=== PATIENT | female | born 1990 | race Caucasian/White ===

== ENCOUNTER → 2020-07-25 11:34 | Outpatient (BNVA) | payer OTHER, SELFPAY | PROVIDERS: PCP Family Medicine; Visit Provider Advanced Practice Midwife | DX: Z76.89 Persons encountering health services in other specified circumstances (principal) ==

== ENCOUNTER → 2020-09-21 08:38 | Outpatient (BNVA) | payer OTHER, SELFPAY | PROVIDERS: Visit Provider Advanced Practice Midwife | DX: Z30.433 Encounter for removal and reinsertion of intrauterine contraceptive device (principal) | CPT/HCPCS: 11981; 11982; 11983; 81025 ==

== ENCOUNTER → 2020-11-12 14:44 | Outpatient (BNVA) | payer OTHER, SELFPAY | PROVIDERS: Visit Provider Advanced Practice Midwife ==

== ENCOUNTER 2020-12-28 12:19 | Emergency (ER) | payer OTHER, SELFPAY ==
--- NOTE | ~2020-12-28 | XR_ITS ---
EXAMINATION: XR CHEST CLINICAL INFORMATION: Chest symptoms. Low suspicion pulmonary edema COMPARISON: Chest radiographs 05/06/2018 TECHNIQUE: Portable upright AP view of the chest was obtained. FINDINGS: The heart is within normal size. The vascularity is normal. There is no airspace consolidation, vascular congestion, Yamini B lines, pleural reaction, or effusion. The costophrenic sulci are clear. The hilar and mediastinal contours and bony structures are unremarkable. XR/XR chest 1V IMPRESSION: Unremarkable examination.
[2020-12-28 12:26] VITALS: BP 120/87; BP 134/72; PULSE 120; PULSE 121; RESP 30; TEMP 36.7; O2SAT 95; O2SAT 98; BMI 32.4
--- NOTE | 2020-12-28 13:00 | ECG_ITS ---
Test Reason : HEART PALP Blood Pressure : / mmHG Vent. Rate : 109 BPM Atrial Rate : 163 BPM P-R Int : 000 ms QRS Dur : 076 ms QT Int : 396 ms P-R-T Axes : 000 048 -06 degrees QTc Int : 533 ms Atrial fibrillation with rapid ventricular response Moderate voltage criteria for LVH, may be normal variant Nonspecific ST and T wave abnormality Abnormal ECG When compared with ECG of 21-FEB-2015 11:08, Significant changes have occurred Referred By: Charlotte Mccurdy Electronically Signed By:LUIGI CONLEY
--- NOTE | 2020-12-28 13:23 | ED.ARRPALP ---
HPI - Arrhythmia/Palpitations General Chief Complaint: Arrhythmia/Palpitations Stated Complaint: afib Time Seen by Provider: 12/28/20 12:59 Source: patient and EMS Mode of arrival: EMS Limitations: no limitations History of Present Illness HPI narrative: Patient comes emergency room complaining of palpitations. Patient states that this morning around 11:00, she started having palpitations. 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 Patient states that she is known to have hyperthyroidism, she is supposed to be taking methimazole, states she is not compliant with her medication. Patient denies chest pain, just complaining of palpitations. Denies shortness of breath. EN route to the hospital, patient received 10 mg of IV Cardizem, decreased her heart rate to 120-130. At this time, patient feels better, still feeling palpitations. MD complaint: heart racing and palpitations Related Data Home Medications Medication Instructions Recorded Confirmed etonogestrel 68 mg subdermal SUBDERMAL 07/25/20 implant methimazole 10 mg tablet 10 mg PO DAILY 07/25/20 Previous Rx's Medication Instructions Recorded methimazole 20 mg PO TID 20 Days #120 tab 12/28/20 propranolol 20 mg PO BID 20 Days #40 tab 12/28/20 Allergies Allergy/AdvReac Type Severity Reaction Status Date / Time No Known Allergies Allergy Verified 11/12/20 14:55 [No Known Allergies*] Review of Systems Review of Systems: Constitutional : No Weight loss, No Fever, No Chills, No Night Sweats, No Fatigue, No Malaise ENT/Mouth : No Hearing loss, No Ear Pain, No Nasal Congestion, No Sinus Pain, No Hoarseness, No sore throat, No Rhinorrhea, No Swallowing Difficulty Eyes: No Eye Pain, No Swelling, No Redness, No Foreign Body, No Discharge, No Vision Changes Cardiovascular : No Chest Pain, No SOB, No Dyspnea on Exertion, No Orthopnea, No Edema, complaining of palpitations Respiratory : No Cough, No Sputum, No Wheezing, No Smoke Exposure, No Dyspnea Gastrointestinal : No Nausea, No Vomiting, No Diarrhea, No Constipation, No abdominal Pain, No Hematochezia, No Melena Genitourinary : no irregular bleeding, No Dysuria, No Urinary Frequency, No Hematuria, No Urinary Incontinence, No Urgency, No Flank Pain, No Urinary Flow Changes, No Hesitancy Musculoskeletal : No joint pain, No Myalgias, No Joint Swelling Skin : No Skin Lesions, No rash Neuro : No Weakness, No Numbness, No Paresthesias, No Loss of Consciousness, No Dizziness, No Headache Psych : No Anxiety/Panic, No Depression, No SI/HI/AH/VH, No Social Issues, Heme/Lymph: No Bruising, No Bleeding,No Lymphadenopathy Endocrine : No Polyuria, No Polydipsia, No Temperature Intolerance FOR[facility]LY [facility] Past Medical History Medical History Graves disease Surgical History History of appendectomy Family History Family History Father FH: heart attack Social History Social History Alcohol intake: never Patient Tobacco Use Status: Never used Tobacco Use of substances other than those prescribed or required for medical reasons: No Advance Directives: No Advance Directives Information Provided: No Patient : No Physical Exam Vital Signs: Vital Signs: Last Vital Signs Temp 98.1 F 12/28/20 12:26 Pulse 95 12/28/20 17:29 Resp 20 12/28/20 17:29 BP 95/74 12/28/20 17:29 Pulse Ox 98 12/28/20 17:29 Body Mass Index 32.4 Appearance: Alert. Oriented X3. No acute distress. Eyes: Pupils equal, round and reactive to light. ENT: Pharynx normal. Neck: Enlarged thyroid, Neck supple. No lymph nodes noted. No crepitus CVS: Irregular heart rate and rhythm. Pulses normal. Normal S1 and S2 Respiratory: No respiratory distress. Breath sounds normal. No Wheezing. No rales Abdomen: Soft and nontender. No rigidity. No distention. good BS x4 Skin: Skin warm and dry. Normal skin color. Normal skin turgor. Extremities: No lower extremity edema. No lower extremity edema. No Lacerations. No Rash Neuro: Oriented X 3. No motor deficit. No sensory deficit. Moving all extermities. No slurred speech. Course Course Course Narrative: Patient received a total of 10 mg IV Cardizem IV and 60 mg p.o. propanolol. I discussed with the patient that she needs to be compliant with her medication. Patient states that she is supposed to be on 60 mg of methimazole per day. Patient does not take propranolol at home. To her knowledge, this is the 1st time that she is in a flutter. Patient's BNP is slightly bumped, but patient does not have any radiological findings of pulmonary edema or any symptoms. I discussed the patient with Dr. Oliver, patient will be sent home with propanolol 25 mg daily, no aspirin or anticoagulation needed. I will also send to the patient's pharmacy a prescription of methimazole, patient states that she does not know if she has any pills at home. At this time, heart rate is 95, blood pressure 95/74, patient is asymptomatic. MDM - Arrhythmia/Palpitations Lab Data Result diagrams: 12/28/20 13:30 12/28/20 13:30 Labs: Lab Results 12/28/20 12/28/20 12/28/20 Range/Units 13:30 13:30 13:30 WBC 5.8 (4.8-10.8) X10*3/uL RBC 5.12 (4.20-5.50) X10*6/uL Hgb 11.7 L (12.0-16.0) g/dl Hct 34.3 L (37-47) % MCV 67.0 L (80-98) fL MCH 22.9 L (27.0-33.0) pg MCHC 34.1 (31.0-35.0) g/dl RDW 14.7 (11.0-16.0) % Plt Count 240 (160-400) X10*3/uL MPV 11.1 (9.4-12.3) fL Immature Gran % (Auto) 0.3 (0.0-0.4) % Neut % (Auto) 52.5 (45-73) % Lymph % (Auto) 38.2 (20-40) % Humphreys % (Auto) 8.3 (2-11) % Eos % (Auto) 0.5 (0-4) % Baso % (Auto) 0.2 (0-2) % Lymph # (Auto) 2.2 (1.2-4.9) X10*3/uL Humphreys # (Auto) 0.5 (0.1-1.2) X10*3/uL Eos # (Auto) 0.0 (0.0-0.4) X10*3/uL Baso # (Auto) 0.0 (0.0-0.2) X10*3/uL Abs Immat Gran (auto) 0.02 (0.00-0.03) X10*3/uL Absolute Neuts (auto) 3.1 (2.0-8.3) X10*3/uL Absolute Nucleated RBC 0.000 (0.0-0.012) X10*3/uL Nucleated RBC % (auto) 0.0 (0.0-0.2) /100WBC PT 13.0 (10.8-13.0) SEC INR 1.1 (0.9-1.1) Sodium 139 (135-145) mmol/L Potassium 4.2 (3.3-5.1) mmol/L Chloride 109 H (96-108) mmol/L Carbon Dioxide 23 (22-29) mmol/L Anion Gap 11 L (12-20) BUN 12 (9-16) mg/dL Creatinine 0.51 (0.5-1.4) mg/dL Estim Creat Clear Calc 177.1 Estimated GFR > 60 Random Glucose 91 (60-115) mg/dL Calcium 9.3 (8.4-10.2) mg/dL Total Bilirubin 0.6 (0.0-1.0) mg/dL Direct Bilirubin 0.3 (0.0-0.5) mg/dL AST 20 (5-31) U/L ALT < 6 (0-31) U/L Alkaline Phosphatase 151 H (39-117) U/L Troponin I High Sens (<3.5-17.0) ng/L B-Natriuretic Peptide (<100) pg/mL Total Protein 6.5 (6.5-8.0) g/dL Albumin 3.5 (3.5-5.0) g/dL TSH (0.32-4.0) uIU/mL Free T4 (0.71-1.85) ng/dL 12/28/20 12/28/20 Range/Units 13:30 13:30 WBC (4.8-10.8) X10*3/uL RBC (4.20-5.50) X10*6/uL Hgb (12.0-16.0) g/dl Hct (37-47) % MCV (80-98) fL MCH (27.0-33.0) pg MCHC (31.0-35.0) g/dl RDW (11.0-16.0) % Plt Count (160-400) X10*3/uL MPV (9.4-12.3) fL Immature Gran % (Auto) (0.0-0.4) % Neut % (Auto) (45-73) % Lymph % (Auto) (20-40) % Humphreys % (Auto) (2-11) % Eos % (Auto) (0-4) % Baso % (Auto) (0-2) % Lymph # (Auto) (1.2-4.9) X10*3/uL Humphreys # (Auto) (0.1-1.2) X10*3/uL Eos # (Auto) (0.0-0.4) X10*3/uL Baso # (Auto) (0.0-0.2) X10*3/uL Abs Immat Gran (auto) (0.00-0.03) X10*3/uL Absolute Neuts (auto) (2.0-8.3) X10*3/uL Absolute Nucleated RBC (0.0-0.012) X10*3/uL Nucleated RBC % (auto) (0.0-0.2) /100WBC PT (10.8-13.0) SEC INR (0.9-1.1) Sodium (135-145) mmol/L Potassium (3.3-5.1) mmol/L Chloride (96-108) mmol/L Carbon Dioxide (22-29) mmol/L Anion Gap (12-20) BUN (9-16) mg/dL Creatinine (0.5-1.4) mg/dL Estim Creat Clear Calc Estimated GFR Random Glucose (60-115) mg/dL Calcium (8.4-10.2) mg/dL Total Bilirubin (0.0-1.0) mg/dL Direct Bilirubin (0.0-0.5) mg/dL AST (5-31) U/L ALT (0-31) U/L Alkaline Phosphatase (39-117) U/L Troponin I High Sens 4.0 (<3.5-17.0) ng/L B-Natriuretic Peptide 182 H (<100) pg/mL Total Protein (6.5-8.0) g/dL Albumin (3.5-5.0) g/dL TSH 0.01 L (0.32-4.0) uIU/mL Free T4 3.75 H (0.71-1.85) ng/dL Imaging Data Chest x-ray: Radiologist's impression: [facility] [place], [place] [id number] ReportSigned Patient: Mya McgillMR#: [id number]: 1990Acct:[id number]/Sex: 30 FADM Date: 12/28/20Loc: HO.EDAttending Dr: Ordering Physician: LANA MCCURDY MD Date of Service: 12/28/20 Procedure(s): XR chest 1V Accession Number(s): [id number] cc: LANA MCCURDY MD~ EXAMINATION: XR CHEST CLINICAL INFORMATION: Chest symptoms. Low suspicion pulmonary edema COMPARISON: Chest radiographs 05/06/2018 TECHNIQUE: Portable upright AP view of the chest was obtained. FINDINGS: The heart is within normal size. The vascularity is normal. There is no airspace consolidation, vascular congestion, Yamini B lines, pleural reaction, or effusion. The costophrenic sulci are clear. The hilar and mediastinal contours and bony structures are unremarkable. XR/XR chest 1V IMPRESSION: Unremarkable examination. ECG Data Attestation: I personally reviewed and interpreted this ECG as follows: (Atrial flutter, heart rate 109, specific ST and T-wave abnormalities, QTC 533. EKG 2.: Sinus rhythm, heart rate 92, no ST segment depression or elevation, no T-wave inversion, QTC 487) Discharge Plan Discharge Clinical Impression: Hyperthyroidism Atrial flutter Qualifiers: Atrial flutter type: unspecified Qualified Code(s): I48.92 - Unspecified atrial flutter Patient Disposition: Home, Self-Care Instructions: Atrial Flutter (ED), Hyperthyroidism (ED) Additional Instructions: Please call your throat cutter on Thursday. Please follow-up with your primary care physician tomorrow. If you have any worsening or new symptoms, please return to the emergency room or call 911 Prescriptions: New methimazole 10 mg tablet 20 mg PO TID 20 Days Qty: 120 RF: 0 propranolol 20 mg tablet 20 mg PO BID 20 Days Qty: 40 RF: 0 No Action Nexplanon 68 mg implant subdermal RF: 0 methimazole 10 mg tablet 10 mg PO DAILY RF: 0
[2020-12-28 13:38] LABS: MANUAL DIFF FLAG NO
[2020-12-28 13:39] LABS: Basophils Percent Auto 0.2 % (0-2); Eosinophils Percent Auto 0.5 % (0-4); Hematocrit 34.3 % (37-47); Hemoglobin 11.7 g/dl (12.0-16.0); Imm Gran Abs Auto 0.02 X10*3/uL (0.00-0.03); Imm Gran Pct Auto 0.3 % (0.0-0.4); Lymphocytes Absolute Auto 2.2 X10*3/uL (1.2-4.9); Lymphocytes Percent Auto 38.2 % (20-40); Mean Corpuscular HGB Conc 34.1 g/dl (31.0-35.0); Mean Corpuscular Hemoglobin 22.9 pg (27.0-33.0); Mean Platelet Volume 11.1 fL (9.4-12.3); Monocytes Absolute Auto 0.5 X10*3/uL (0.1-1.2); Monocytes Percent Auto 8.3 % (2-11); Neutrophils Absolute Auto 3.1 X10*3/uL (2.0-8.3); Neutrophils Percent Auto 52.5 % (45-73); Platelet Count 240 X10*3/uL (160-400); Red Blood Count 5.12 X10*6/uL (4.20-5.50); Red Cell Distribution Width 14.7 % (11.0-16.0); White Blood Count 5.8 X10*3/uL (4.8-10.8)
[2020-12-28] MEDS: 0.9 % Sodium Chloride 1,000 ML 999 ML IVCONT ×2 (13:52→15:08)
[2020-12-28 13:54] LABS: INTERNATIONAL NORM RATIO 1.1 (0.9-1.1)
[2020-12-28 14:05] VITALS: BP 114/67; PULSE 137
[2020-12-28] MEDS: Propranolol HCL 20 MG TABLET 60 MG PO (14:05)
[2020-12-28 14:14] LABS: B Type Natriuretic Peptide 182 pg/mL (<100)
[2020-12-28 14:17] LABS: Alanine Aminotransferase < 6 U/L (0-31); Albumin Level 3.5 g/dL (3.5-5.0); Alkaline Phosphatase 151 U/L (39-117); Anion Gap 11 (12-20); Aspartate Amino Transferase 20 U/L (5-31); Bilirubin Direct 0.3 mg/dL (0.0-0.5); Bilirubin Total 0.6 mg/dL (0.0-1.0); Blood Urea Nitrogen 12 mg/dL (9-16); Calcium 9.3 mg/dL (8.4-10.2); Carbon Dioxide 23 mmol/L (22-29); Chloride 109 mmol/L (96-108); Creatinine Clr Calc Pharmacy 177.1; Estimated Glomerular Filt Rate > 60; Glucose Random 91 mg/dL (60-115); Potassium 4.2 mmol/L (3.3-5.1); Sodium 139 mmol/L (135-145); Total Protein 6.5 g/dL (6.5-8.0)
[2020-12-28 14:28] LABS: TSH reflex Free T4 0.01 uIU/mL (0.32-4.0)
[2020-12-28 15:00] LABS: Free T4 (Free Thyroxine) 3.75 ng/dL (0.71-1.85)
[2020-12-28 15:10] VITALS: BP 132/108; PULSE 124; RESP 15; O2SAT 98
[2020-12-28 16:58] VITALS: BP 117/55; PULSE 108; RESP 22; O2SAT 97
--- NOTE | 2020-12-28 16:58 | PC.NURSE ---
PT HAS BEEN AMBULATORY to bathroom with no distress, HR 128, afib on monitor. Pt denies SOB, denies dizziness or chest pain. Will continue to monitor
[2020-12-28 17:29] VITALS: BP 95/74; PULSE 95; RESP 20; O2SAT 98
--- NOTE | 2020-12-28 17:30 | PC.NURSE ---
pt has converted to Sinus rythm. EKG obtained to confirm
--- NOTE | 2020-12-28 17:32 | ECG_ITS ---
Test Reason : REAPEAT Blood Pressure : / mmHG Vent. Rate : 092 BPM Atrial Rate : 092 BPM P-R Int : 144 ms QRS Dur : 082 ms QT Int : 394 ms P-R-T Axes : 058 055 038 degrees QTc Int : 487 ms Normal sinus rhythm Prolonged QT Abnormal ECG When compared with ECG of 28-DEC-2020 13:10, Sinus rhythm has replaced Atrial fibrillation T wave inversion no longer evident in Inferior leads Referred By: Charlotte Mccurdy Electronically Signed By:Kraig Borja
== END 2020-12-28 18:05 | disposition home or self-care (01) ==
PROVIDERS: Emergency Provider Emergency Medicine
DX: I48.92 Unspecified atrial flutter (principal); E05.90 Thyrotoxicosis, unspecified without thyrotoxic crisis or storm; Z91.14 Patient's other noncompliance with medication regimen
CPT/HCPCS: 36415; 71045; 80048; 80076; 83880; 84439; 84443; 84484; 85025; 85610; 93005; 96360; 99285

== ENCOUNTER 2021-01-03 09:18 | Outpatient (REF) | payer OTHER, SELFPAY ==
[2021-01-04 09:03] LABS: CT PCR NOT DETECTED (Not Detect.); NG PCR NOT DETECTED (Not Detect.)
[2021-01-08 15:22] LABS: HPV mRNA E6/E7 rflx Not Detected (Not Detected)
== END 2021-01-03 09:19 | disposition home or self-care (01) ==
LOC: HO.LAB 09:18
PROVIDERS: Visit Provider Advanced Practice Midwife
DX: Z01.419 Encounter for gynecological examination (general) (routine) without abnormal findings (principal); Z11.51 Encounter for screening for human papillomavirus (HPV); Z20.2 Contact with and (suspected) exposure to infections with a predominantly sexual mode of transmission
CPT/HCPCS: 87491; 87591; 87624; 88142

== ENCOUNTER → 2021-02-12 15:08 | Outpatient (BNVA) | payer OTHER, SELFPAY | PROVIDERS: Visit Provider Internal Medicine | DX: I48.0 Paroxysmal atrial fibrillation (principal); E05.00 Thyrotoxicosis with diffuse goiter without thyrotoxic crisis or storm | CPT/HCPCS: 93005 ==

== ENCOUNTER → 2021-02-20 11:43 | Outpatient (REF) | payer OTHER, SELFPAY ==
--- NOTE | 2021-02-20 12:16 | HM_ITS ---
Total monitoring period 2 days and 23 hours. Underlying rhythm is sinus. Minimum heart rate 64/Min. Maximum 151/Min. Average 94/Min. About 35% of the time, rate greater than 100/Min. No evidence of any atrial fibrillation or flutter. No AV blocks or pauses. Rare PACs and PVCs. No patient events. MTDD
== END ==
LOC: HO.CARD 11:43
PROVIDERS: Visit Provider Internal Medicine
DX: I48.0 Paroxysmal atrial fibrillation (principal)
CPT/HCPCS: 93225; 93242

== ENCOUNTER → 2021-03-26 13:58 | Outpatient (REF) | payer OTHER, SELFPAY ==
--- NOTE | 2021-03-26 14:01 | CA_ITS ---
Transthoracic Echocardiogram Patient (Last, First, Middle): Mya Mcgill, Gender: Female Date of : 1990 Age: 30 Procedure Date: 03/26/2021 Procedure Type: Transthoracic Echocardiogram Location: OP Height: 167.64 cm Weight: 86.18 kg BSA: 1.96 m2 Heart Rate: bpm BP: 118 / 70 mmHg Travelers' Aid Worker: DESTINEY/JAVIER Referring MD: Shimon Oliver MD Symptoms: I48.0 - Paroxysmal atrial fibrillation Study Quality: Fair ECG Rhythm: Sinus Conclusions: - The left ventricular systolic function is normal. The visually estimated ejection fraction is between 65-70%. - Mildly increased right ventricular cavity size. - No obvious valvular pathology seen on this study. Findings Left Ventricle Normal left ventricular cavity size. There is normal left ventricular wall thickness. The left ventricular systolic function is normal. The visually estimated ejection fraction is between 65-70%. There is no evidence of regional wall motion abnormalities. Diastolic function is normal for age. Right Ventricle Mildly increased right ventricular cavity size. There is normal right ventricular systolic function. Atria Both atria are normal in size. (measurement was checked). Aortic Valve There is a normal trileaflet aortic valve. There is no aortic valve stenosis. There is no aortic valve regurgitation. Mitral Valve The mitral valve appears normal. There is trace mitral valve regurgitation. There is no mitral valve stenosis. Pulmonic Valve The pulmonic valve was not well visualized. Tricuspid Valve Normal tricuspid valve structure. There is trace tricuspid valve regurgitation. The pulmonary artery systolic pressure is normal. Great Vessels The aortic annulus, sinuses of valsalva, and asc aorta are normal in size. Venous The inferior vena cava is normal in size and collapses greater than 50% with inspiration. Pericardium/Pleural There is no evidence of pericardial effusion. Prior Study Comparison No prior study available for comparison. Recommendations, Care & Conclusions No obvious valvular pathology seen on this study. Measurements 2D Linear Measurements IVSd: 0.91 0.6-0.9/0.6-1.0 cm LVIDd: 5.08 3.9-5.3/4.2-5.9 cm LVIDd Index: 2.62 2.4-3.2/2.2-3.1 cm/m2 LVIDs: 3.03 2.0-3.6 cm LVPWd: 0.87 0.7-1.1 cm Ao Root: 2.70 2.1-3.5 cm LA Diam: 3.50 2.7-3.8/3.0-4.0 cm LAIDs Index: 1.80 1.5-2.3 cm/m2 LV Mass: 199.11 67-162/88-224 g LV Mass Index: 102.63 43-95/49-115 g/m2 LVOT Diam: 2.10 3.0+(-)1.3 cm Mitral Valve MV Pk E: 1.02 MV PK A: 0.59 MV Decel Time: 241.00 E/A: 1.70 E'Lateral: 13.40 E'Medial: 9.79 E/E' Med: 10.40 E/E' Lat: 7.60 PHT: 71.00 MVA PHT: 3.10 Decel Towns: 4.21 Aortic Valve AoV Pk Trey: 1.61 AoV Mn Trey: 1.06 AoV VTI: 0.29 AoV Pk Grad: 10.00 Aov Mn Grad: 5.00 JESSEE Cont.VTI: 3.29 LVOT LVOT Pk Trey: 1.50 LVOT Mn Trey: 0.96 LVOT VTI: 0.27 LVOT Pk Grad: 9.00 LVOT Mn Grad: 4.00 LVOT Diam: 2.10 LVOT Area: 3.46 Diastolic Function MV Pk E: 1.02 MV Pk A: 0.59 E/A: 1.70 E'Medial: 9.79 E/E' Med: 10.40 E' Laterial: 13.40 E/E' Lat: 7.60 Right Ventricle TAPSE (mm): 25.00 TVS' Trey: 17.00 Great Vessels Aorta Ao Root-2D: 2.70 2.0-3.7 cm Ao Asc: 2.80 2.1-3.4 cm Ao Arch: 2.90 Updated in Other Vendor System with Status of Final Shimon Oliver MD electronically signed on 03/26/2021 4:16:20 PM with status of Final
== END ==
LOC: HO.CARD 13:58
PROVIDERS: Visit Provider Internal Medicine
DX: I48.0 Paroxysmal atrial fibrillation (principal)
CPT/HCPCS: 93306

== ENCOUNTER → 2021-04-08 14:18 | Outpatient (BNVA) | payer OTHER, SELFPAY | PROVIDERS: Visit Provider Internal Medicine ==

== ENCOUNTER → 2022-04-28 15:19 | Outpatient (BNVA) | payer OTHER, SELFPAY | PROVIDERS: PCP Nurse Practitioner Family; Referring Provider Nurse Practitioner Family; Visit Provider Internal Medicine | DX: I48.0 Paroxysmal atrial fibrillation (principal); E05.00 Thyrotoxicosis with diffuse goiter without thyrotoxic crisis or storm | CPT/HCPCS: 93005 ==

== ENCOUNTER 2022-06-26 14:10 | Outpatient (REF) | payer OTHER, SELFPAY ==
[2022-06-26 15:17] LABS: Influenza A PCR POSITIVE (Negative); Influenza B PCR NEGATIVE (Negative); Resp Syncy Virus RNA Qual PCR NEGATIVE (Negative); SARS COV2 PCR INHOUSE NEGATIVE (Negative)
== END 2022-06-26 14:11 | disposition home or self-care (01) ==
LOC: HO.LNP 14:10
PROVIDERS: Visit Provider Internal Medicine
DX: Z20.822 Contact with and (suspected) exposure to COVID-19 (principal); R09.89 Other specified symptoms and signs involving the circulatory and respiratory systems
CPT/HCPCS: 0241U

== ENCOUNTER 2022-12-26 08:21 | Outpatient (REF) | payer OTHER, SELFPAY ==
[2022-12-26 15:07] LABS: CT PCR NOT DETECTED (Not Detect.); NG PCR NOT DETECTED (Not Detect.)
[2022-12-27 10:00] LABS: BV Int Neg Control Negative (Negative); BV Int Pos Control Positive (Positive)
== END 2022-12-26 08:22 | disposition home or self-care (01) ==
LOC: HO.LNP 08:21
PROVIDERS: PCP Nurse Practitioner Family; Visit Provider Advanced Practice Midwife
DX: N89.8 Other specified noninflammatory disorders of vagina (principal); Z20.2 Contact with and (suspected) exposure to infections with a predominantly sexual mode of transmission
CPT/HCPCS: 0353U; 87480; 87510; 87660

== ENCOUNTER 2023-02-27 13:59 | Outpatient (REF) | payer OTHER, SELFPAY | END 2023-02-27 14:00 | disposition home or self-care (01) | LOC: HO.LNP 13:59 | PROVIDERS: PCP Nurse Practitioner Family; Visit Provider Advanced Practice Midwife | DX: Z13.89 Encounter for screening for other disorder (principal) ==

== ENCOUNTER 2023-02-27 13:59 | Outpatient (AMB) | payer OTHER, SELFPAY ==
[2023-02-27 14:12] VITALS: BP 120/72; BMI 37.2
--- NOTE | 2023-02-27 14:12 | A.OFFVIS_ITS ---
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 Doing well with no wound care technician concerns. She admits to eating healthy and doesn't to stay active with exercise. Currently sexually active. Uses Nexplanon for BC and is doing well. Denies vaginal itching and irritation. STD screening and blood work offered; she accepts. Denies family hx of breast, colon and ovarian cancer. Last pap smear 01/04/21. 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 Sexual orientation: Straight/Heterosexual Gender identity: Female Female Reproductive History Menstrual Age of Menarche: 11 control method: implanted (Nexplanon 09/21/20) Total pregnancies: 2 Full term: 1 Number of Living Children: 1 Ab induced: 1 Date of last pap smear: 01/04/21 History of abnormal pap smear: No Physical Exam Vital Signs: Last Vital Signs BP 120/72 02/27/23 14:12 BMI result Body Mass Index 37.2 Const General: cooperative, healthy appearing, no acute distress, well developed and alert Orientation/consciousness: patient oriented x3 HEENT Head: Yes normal to inspection Eyes General: appearance normal, both eyes and all related structures Neck Neck: Yes normal visual inspection Thyroid: Thyroid normal Chest Chest palpation & inspection: normal inspection of the chest Breast/axilla inspection: normal inspection of the breasts (no puckering, dimpling, peau de orange, retraction, discharge, masses) Breast/axilla palpation: normal palpation of the breasts Resp Effort & Inspection: normal respiratory effort GI Inspection: Yes normal to inspection Palpation (GI): Soft to palpation (to palpation) Rectal Exam - Female: deferred General: Yes bladder normal to inspection External Female Exam: normal external appearance and normal appearance of the urethra Speculum Exam - Vagina: normal appearance of the vagina, normal palpation and normal vaginal discharge Speculum Exam - Cervix: normal appearance of the cervix and normal palpation Bimanual exam- vagina & uterus: normal palpation and normal palpation Bimanual Exam- Adnexa, other: normal adnexae and no masses Skin General skin exam: no rashes or lesions noted Neuro General: patient oriented x3 Cognition (Neuro): normal cognition Extrem General: Yes normal to inspection Psych Attitude: cooperative Thought process: Normal thought process present Assessment & Plan Assessment & Plan (1) Encounter for well woman exam: Code(s): Z01.419 - Encounter for gynecological examination (general) (routine) without abnormal findings Plan: Discussed: Current recommendations for pap smears per ASCCP guidelines Breast awareness and periodic self breast exams. Maintaining a healthy lifestyle including a well balanced diet and routine exercise. All of her questions and concerns were addressed to the best of my ability. RTO in one year for AG. (2) Potential exposure to STD: Code(s): Z20.2 - Contact with and (suspected) exposure to infections with a predominantly sexual mode of transmission Plan: BV testing and GC/CT panel today. STD blood work ordered. Await results and treat accordingly. (3) Contraceptive surveillance: Code(s): Z30.40 - Encounter for surveillance of contraceptives, unspecified Plan: She is aware is is approved for 3 years and to RTO for removal before expiration. Schedule consult for Nexplanon removal/renew July 2023. Orders: Orders Hepatitis B Core Antibody Today Z20.2 - Contact with and (suspected) exposure to infections with a predominantly sexual mode of transmission Hepatitis C Antibody Today Z20.2 - Contact with and (suspected) exposure to infections with a predominantly sexual mode of transmission HIV Ab/Ag Today Z20.2 - Contact with and (suspected) exposure to infections with a predominantly sexual mode of transmission Syphilis Screen Today Z20.2 - Contact with and (suspected) exposure to infections with a predominantly sexual mode of transmission Bacterial Vaginosis Panel Today Z20.2 - Contact with and (suspected) exposure to infections with a predominantly sexual mode of transmission CT NG by PCR Today Z20.2 - Contact with and (suspected) exposure to infections with a predominantly sexual mode of transmission Coding Level of Care Code Est Pt Prev Care 18-39y([id number]) Diagnoses Encounter for well woman exam Z01.419 Potential exposure to STD Z20.2 Contraceptive surveillance Z30.40
== END 2023-02-27 14:34 | disposition home or self-care (01) ==
LOC: HO.HWS 13:59
PROVIDERS: PCP Nurse Practitioner Family; Visit Provider Advanced Practice Midwife
DX: Z01.419 Encounter for gynecological examination (general) (routine) without abnormal findings (principal); Z20.2 Contact with and (suspected) exposure to infections with a predominantly sexual mode of transmission; Z30.40 Encounter for surveillance of contraceptives, unspecified
CPT/HCPCS: 99395

== ENCOUNTER 2023-02-27 14:41 | Outpatient (REF) | payer OTHER, SELFPAY ==
[2023-02-28 03:37] LABS: Syphilis Screen Nonreactive (Nonreactive)
[2023-02-28 03:49] LABS: HBc Num1 0.13 S/CO (0.00-0.79); HIV AB/AG Nonreactive (Nonreactive); HIV Num 1 0.06 S/CO (0.00-0.99); Hepatitis B Core Antibody Nonreactive (Nonreactive); ~HepC Num1 0.29 S/CO (0.00-0.79); ~Hepatitis C Antibody Nonreactive (Nonreactive)
[2023-02-28 04:07] LABS: CT PCR NOT DETECTED (Not Detect.); NG PCR NOT DETECTED (Not Detect.)
[2023-02-28 11:48] LABS: BV Int Neg Control Negative (Negative); BV Int Pos Control Positive (Positive)
== END 2023-02-27 14:42 | disposition home or self-care (01) ==
LOC: HO.LAB 14:41
PROVIDERS: PCP Nurse Practitioner Family; Visit Provider Advanced Practice Midwife
DX: Z11.4 Encounter for screening for human immunodeficiency virus [HIV] (principal); Z20.2 Contact with and (suspected) exposure to infections with a predominantly sexual mode of transmission
CPT/HCPCS: 0353U; 86704; 86780; 86803; 87389; 87480; 87510; 87660

== ENCOUNTER 2023-07-17 13:58 | Outpatient (AMB) | payer OTHER, SELFPAY ==
--- NOTE | 2023-07-17 14:10 | MHC.OFFVIS ---
Intake Vital Signs 07/17/23 14:15 Height 5 ft 4 in Weight 223 lb BMI 38.3 BP 112/60 Intake Visit Reasons: Nexplanon Consult Maitre D' Required: No Information Interpreted: non-clinical & clinical Accompanied by: Self / Same As Patient Allergies No Known Allergies [No Known Allergies*] Allergy (Verified 07/17/23 14:15) Is last menstrual period known: Yes Last menstrual period: 07/14/23 HPI HPI Comments History of Present Illness Details Patient is here for contraceptive regarding a Nexplanon exchange. She is up-to-date with the device it is not . She has no other concerns. She has tried the Mirena in the past but prefers to stay with the Nexplanon despite weight gain. She denies any contraindications to Nexplanon continued use. 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 Prior authorizations forms scented signed today and will be faxed over patient to check back in 2 weeks as status for approval and then once the devices in she will be notified. Use of condoms as a backup method if indicated or needed. All of her questions and concerns were addressed to the best of my ability and shared decision making. She is agreeable to the plan of care. Coding Level of Care Code Est Pt Level 3 (39579) Diagnoses control counseling Z30.09
[2023-07-17 14:15] VITALS: BP 112/60; BMI 38.3
== END 2023-07-17 15:37 | disposition home or self-care (01) ==
LOC: HO.HWS 13:58
PROVIDERS: PCP Nurse Practitioner Family; Visit Provider Advanced Practice Midwife
DX: Z30.09 Encounter for other general counseling and advice on contraception (principal)
CPT/HCPCS: 99213

== ENCOUNTER → 2023-07-17 13:58 | Outpatient (BNVA) | payer OTHER, SELFPAY | PROVIDERS: PCP Nurse Practitioner Family; Visit Provider Advanced Practice Midwife ==

== ENCOUNTER 2023-12-02 13:24 | Outpatient (AMB) | payer OTHER, SELFPAY ==
[2023-12-02 13:43] VITALS: BP 112/70; BMI 40.3
--- NOTE | 2023-12-02 13:43 | A.OFFVIS_ITS ---
Vital Signs 12/02/23 13:43 Height 5 ft 4 in Weight 235 lb BMI 40.3 BP 112/70 Intake Visit Reasons: Nexplanon Insertion Dividend Clerk Required: No Information Interpreted: non-clinical & clinical Network Diagnostic Support Specialist: Network Diagnostic Support Specialist Present (Autumn) Allergies No Known Allergies [No Known Allergies*] Allergy (Verified 12/02/23 13:44) Is last menstrual period known: Yes Post menopausal: No Patient : No HPI Comments Details: Patient is here today for Nexplanon exchange she is not currently overdue. An urine test is negative. She has not currently sexually active and denies any risk to . 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 Sexual orientation: Straight/Heterosexual Gender identity: Female Female Reproductive History Menstrual Age of Menarche: 11 control method: implanted (Nexplanon: Left arm 12/02/2023) Date of last pap smear: 01/04/21 (negative) Review of Systems Const All systems reviewed & are unremarkable except as noted in HPI and below Endo Reports no additional complaints Physical Exam Vital Signs: Last Vital Signs BP 112/70 12/02/23 13:43 BMI result Body Mass Index 40.3 Const General: cooperative, healthy appearing and no acute distress Extrem Other: Upper inner left arm implant was found to be intact nontender and superficial. Psych Appearance: well kempt Attitude: cooperative Thought process: Normal thought process present Office Procedures Contraception Insert/Removal Details 66109 - Insertion and Removal Contraception Insert/Removal Details Details: The patient is here today for a Nexplanon exchange: ?removal and reinsertion: She was counseled regarding the risks including and benefits for the Nexplanon device. She denies any risks to .Anticipatory guidance for the insertion procedure was reviewed. The urine test is negative. Risk of the procedure including pain, infection, bleeding, injury to the nerves, blood, vessels and surrounding tissue, migration of the device, unscheduled unpredictable bleeding patterns, weight gain, skin changes including acne. The consent form was signed and the patient request that the Nexplanon device be placed today. Nexplanon removal and reinsertion Procedure: The patient was placed in a supine position with her non dominant left hand resting under her head. The previous insertion site was located: 8-10cm from the medial epicondyle notch of the humerus, posterior to the sulcus, between the triceps and biceps muscle. The area of the previous implant was identified and the distal tip located. This area was cleansed with an alcohol prep and 1 ml of 1% Lidocaine on a 25 gauge needle and syringe was utilized for adequate anesthesia to the insertion site. After ascertaining adequate anesthesia, the area was prepped with Betadine solution. The skin over the distal tip was incised with a #11 blade scalpel and the capsule was located and entered freeing the implant from the canal. The implant was removed with a gentle tug using a gauze pad and removed intact. The Nexplanon device was removed from the manufacturers package and the implant was noted in the trocar canal. The trocar was inserted at a 30 degree angle and then lowered parallel to the skin for insertion into the subcutaneous space with counter traction. Direct pressure was applied to the insertion site for hemostasis, minimal bleeding was observed. Steri strips, Tegaderm covering, gauze pads, and Errol wrap dressing were secured with paper tape. Nexplanon Post-insertion Care: You may expect mild tenderness, swelling, and bruising from the area. If no allergies or contraindications, you may use a mild over the counter analgesic like Tylenol or Advil (follow the manufacturers recommendations on dosing and frequency of use). Call the office if any symptoms and including: fever (over 100.4), flu like symptoms, signs of infection-redness, pus drainage, pain (beyond usual healing), for any medical changes, suspected , heavy or prolonged vaginal bleeding Seek emergent care in the Emergency department for: sudden visual loss, shortness of breath, severe headache that is not consistent with your usual headaches, heaviness, sharp or severe chest pains, coughing up of blood, persistent pain in one of your extremities, weakness or numbness in an arm, leg or face, tongue or pharynx, trouble swallowing, difficult speaking, hives and trouble breathing, yellowing of skin, whites or eyes, especially with tiredness, loss of appetite, dark colored urine, light colored bowel movements, swelling or tenderness of the abdomen. The Nexplanon does not protect you from STI's, use of condoms is advised. Use a back up method of contraception for 7 days if the device is not placed within the first 5 days of your menses cycle to prevent an unintended . Keep the pressure dressing on and clean and dry for 24 hours, then remove it. You may take the steri strips and Tegaderm off in 5-7days, or sooner if peeling off on its own. Schedule a office post insertion check up in 4-6 weeks. The patient tolerated the procedure well and left the office in good condition. This note is constructed using voice recognition software. ?While every effort has been made to ensure accuracy, outside medical sales representative errors may have been included. ? 47036 - Insertion and Removal Office Meds Nexplanon 68 mg subdermal implant Performing Provider: Alexsandra Reid CNM Performing Location: [facility] [place] [facility] Administered by: CLEMENCIA Cooper on 12/02/23 14:11 Dose Route Admin Location Dispensed Lot Number Expiration Date [facility] [employer] 1 implant subdermal [facility] implant [id number] 06/11/25 40529-892-87 [employer] Marketing Results AMB Test Urine AMB Test Urine Negative Last Edit by CLEMENCIA Cooper on 12/02/23 13:45 Results Reviewed Results Reviewed: Laboratory Last Values [facility] Negative 12/02/23 13:45 Assessment & Plan Assessment & Plan (1) Encounter for removal and reinsertion of Nexplanon: Code(s): Z30.46 - Encounter for surveillance of implantable subdermal contraceptive Plan See procedure for notes in plan of care. Orders: Orders AMB HCG Urine Test Today Z32.02 - Encounter for test, result negative AMB Nexplanon/Implanon Insertion - Patient Supply Today Z30.46 - Encounter for surveillance of implantable subdermal contraceptive Coding Level of Care Code Procedure Only Diagnoses Encounter for removal and reinsertion of Nexplanon Z30.46 CPT Codes Details - Contraception: 83440 - Insertion and Removal ([id number]) Details - Contraception: 07647 - Insertion and Removal ([id number])
== END 2023-12-02 14:10 | disposition home or self-care (01) ==
LOC: HO.HWS 13:32
PROVIDERS: PCP Nurse Practitioner Family; Visit Provider Advanced Practice Midwife
DX: Z30.46 Encounter for surveillance of implantable subdermal contraceptive (principal); Z32.02 Encounter for pregnancy test, result negative
CPT/HCPCS: 11983

== ENCOUNTER → 2023-12-02 13:32 | Outpatient (BNVA) | payer OTHER, SELFPAY | PROVIDERS: PCP Nurse Practitioner Family; Visit Provider Advanced Practice Midwife | DX: Z30.46 Encounter for surveillance of implantable subdermal contraceptive (principal) | CPT/HCPCS: 11983; 81025; J7307 ==

== ENCOUNTER 2024-01-22 13:10 | Outpatient (AMB) | payer OTHER, SELFPAY ==
--- NOTE | 2024-01-22 13:26 | A.OFFVIS_ITS ---
Vital Signs 01/22/24 13:27 Height 5 ft 4 in Weight 240 lb BMI 41.2 BP 116/64 Intake Visit Reasons: 4-6 Nexplanon Check Realtime Reporter Required: No Information Interpreted: non-clinical & clinical Construction Equipment Technician: Construction Equipment Technician Present Accompanied by: Self / Same As Patient Allergies No Known Allergies [No Known Allergies*] Allergy (Verified 01/22/24 13:33) Is last menstrual period known: Yes Last menstrual period: 12/02/23 HPI Comments Details: Patient is here for her 1st checkup after her Nexplanon reinsertion has been completed. She reports no concerns with bleeding. She has no other concerns. 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 Psych Appearance: well kempt Attitude: cooperative Thought process: Normal thought process present Assessment & Plan Assessment & Plan (1) Encounter for surveillance of implantable subdermal contraceptive: Code(s): Z30.46 - Encounter for surveillance of implantable subdermal contraceptive Category: Medical Plan Monitor menstrual cycles report any abnormal changes. Follow up for her routine fusing machine operator annual as scheduled. All of her questions and concerns were addressed to the best of my ability and shared decision making. She is agreeable to the plan of care. This note is constructed using voice recognition software. While every effort has been made to ensure accuracy, bench worker hollow handle errors may have been included. Coding Level of Care Code Est Pt Level 2 (41272) Diagnoses Encounter for surveillance of implantable subdermal contraceptive Z30.46
[2024-01-22 13:27] VITALS: BP 116/64; BMI 41.2
== END 2024-01-22 13:52 | disposition home or self-care (01) ==
LOC: HO.HWS 13:10
PROVIDERS: PCP Nurse Practitioner Family; Visit Provider Advanced Practice Midwife
DX: Z30.46 Encounter for surveillance of implantable subdermal contraceptive (principal)
CPT/HCPCS: 99212

== ENCOUNTER → 2024-01-22 13:10 | Outpatient (BNVA) | payer OTHER, SELFPAY | PROVIDERS: PCP Nurse Practitioner Family; Visit Provider Advanced Practice Midwife ==

== ENCOUNTER 2024-03-03 14:36 | Outpatient (REF) | payer OTHER, SELFPAY ==
[2024-03-03 18:06] LABS: CT PCR NOT DETECTED (Not Detect.); NG PCR NOT DETECTED (Not Detect.)
[2024-03-03 18:13] LABS: Bacterial Vaginosis PCR NEGATIVE (Negative); Candida Group PCR NOT DETECTED (Not Detect); Candida glab krusei PCR NOT DETECTED (Not Detect); Trichomonas vaginalis PCR NOT DETECTED (Not Detect)
== END 2024-03-03 14:37 | disposition home or self-care (01) ==
LOC: HO.LNP 14:36
PROVIDERS: PCP Nurse Practitioner Family; Visit Provider Advanced Practice Midwife
DX: Z20.2 Contact with and (suspected) exposure to infections with a predominantly sexual mode of transmission (principal)
CPT/HCPCS: 0352U; 87491; 87591

== ENCOUNTER 2024-03-03 14:36 | Outpatient (AMB) | payer OTHER, SELFPAY ==
--- NOTE | 2024-03-03 14:38 | A.OFFVIS_ITS ---
Vital Signs 03/03/24 14:39 Height 5 ft 4 in Weight 244 lb BMI 41.9 BP 100/60 Intake Visit Reasons: RADIATION CONTROL HEALTH PHYSICIST annual exam Molasses Preparer: Molasses Preparer Present (Nadia) Allergies No Known Allergies [No Known Allergies*] Allergy (Verified 03/03/24 14:39) HPI Comments Details: She is a premenopausal woman presenting for annual examination. Doing well with no concerns. She tries to eat healthy and stays active with exercise. No menses w/the implant. Currently is not sexually active. She denies vaginal itching and irritation. STI screening offered; she accepts. Denies family history of breast, ovarian or colon cancer. Last pap smear 2020, negative. 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 Sexual orientation: Straight/Heterosexual Gender identity: Female Female Reproductive History Menstrual Age of Menarche: 11 control method: implanted (Nexplanon 12/02/23) Total pregnancies: 2 Full term: 1 Number of Living Children: 1 Ab induced: 1 Date of last pap smear: 01/03/21 (neg pap and hpv) Review of Systems Const All systems reviewed & are unremarkable except as noted in HPI and below Reports as per HPI Eyes Reports no additional complaints ENT Reports no additional complaints Card Reports no additional complaints Resp Reports no additional complaints GI Reports as per HPI and Reports no additional complaints Reports as per HPI Musc Reports no additional complaints Skin/Breast Reports as per HPI Neuro Reports no additional complaints Psych Reports no additional complaints Endo Reports no additional complaints Noman/Lymph Reports no additional complaints Aller/Immun Reports no additional complaints Physical Exam Vital Signs: Last Vital Signs BP 100/60 03/03/24 14:39 BMI result Body Mass Index 41.9 Const General: cooperative, healthy appearing, no acute distress, well developed and alert Orientation/consciousness: patient oriented x3 HEENT Head: Yes normal to inspection Eyes General: appearance normal, both eyes and all related structures Neck Neck: Yes normal visual inspection Thyroid: Thyroid normal Chest Chest palpation & inspection: normal inspection of the chest and other (no puckering, dimpling, peau de orange, retraction, discharge, masses) Breast/axilla inspection: normal inspection of the breasts Breast/axilla palpation: normal palpation of the breasts Resp Effort & Inspection: normal respiratory effort GI Inspection: Yes normal to inspection Palpation (GI): Soft to palpation Rectal Exam - Female: deferred General: Yes bladder normal to palpation External Female Exam: normal external appearance and normal appearance of the urethra Speculum Exam - Vagina: normal appearance of the vagina, normal palpation and normal vaginal discharge Speculum Exam - Cervix: normal appearance of the cervix and normal palpation Bimanual exam- vagina & uterus: normal bimanual exam, normal palpation, uterine size normal, bladder normal to palpation, normal palpation and non-tender Bimanual Exam- Adnexa, other: no masses Skin General skin exam: no rashes or lesions noted Rashes: no rashes Neuro General: patient oriented x3 Cognition (Neuro): normal cognition Extrem General: Yes normal to inspection Psych Attitude: cooperative Thought process: Normal thought process present Assessment & Plan Assessment & Plan (1) Encounter for well woman exam with routine gynecological exam: Code(s): Z01.419 - Encounter for gynecological examination (general) (routine) without abnormal findings Category: Medical Plan Discussed: Current recommendations for pap smears per ASCCP guidelines. Breast awareness and periodic breast exams. Maintain a healthy lifestyle including a well balanced diet and routine exercise. Use condoms for STI and prevention. Patient verbalizes understanding and agrees to the plan of care. She was given opportunity to ask questions and all questions were answered to the best of my ability. RTO in one year for annual roll plugger examination. This note is constructed using voice recognition software. While every effort has been made to ensure accuracy, manager of organizational development errors may have been included. Orders: Orders HIV Ab/Ag Today Z20.2 - Contact with and (suspected) exposure to infections with a predominantly sexual mode of transmission Hepatitis C Antibody Reflex Today Z20.2 - Contact with and (suspected) exposure to infections with a predominantly sexual mode of transmission Hepatitis B Core Antibody Today Z20.2 - Contact with and (suspected) exposure to infections with a predominantly sexual mode of transmission CT NG by PCR Today Z20.2 - Contact with and (suspected) exposure to infections with a predominantly sexual mode of transmission Syphilis Screen Today Z20.2 - Contact with and (suspected) exposure to infections with a predominantly sexual mode of transmission Bacterial Vaginosis Panel Today Z20.2 - Contact with and (suspected) exposure to infections with a predominantly sexual mode of transmission Coding Level of Care Code Est Pt Prev Care 18-39y(53506) Diagnoses Encounter for well woman exam with routine gynecological exam Z01.419
[2024-03-03 14:39] VITALS: BP 100/60; BMI 41.9
== END 2024-03-03 15:01 | disposition home or self-care (01) ==
LOC: HO.HWS 14:36
PROVIDERS: PCP Nurse Practitioner Family; Visit Provider Advanced Practice Midwife
DX: Z01.419 Encounter for gynecological examination (general) (routine) without abnormal findings (principal)
CPT/HCPCS: 99395

== ENCOUNTER 2024-03-03 14:54 | Outpatient (REF) | payer OTHER, SELFPAY | END 2024-03-03 14:55 | disposition home or self-care (01) | LOC: HO.LAB 14:54 | PROVIDERS: Visit Provider Advanced Practice Midwife | DX: Z13.89 Encounter for screening for other disorder (principal) ==

== ENCOUNTER 2024-05-02 14:53 | Outpatient (AMB) | payer OTHER, SELFPAY ==
[2024-05-02 14:56] VITALS: BP 110/58; PULSE 59; BMI 43.1
--- NOTE | 2024-05-02 14:56 | A.OFFVIS_ITS ---
Vital Signs 05/02/24 14:56 Height 5 ft 4 in Weight 251 lb 5.231 oz BMI 43.1 BP 110/58 L Blood Pressure Location Lt brachial Position Sitting Pulse 59 Pulse Source Monitor Intake Visit Reasons: 2 years followup w/ekg dx: paf Allergies No Known Allergies [No Known Allergies*] Allergy (Verified 03/03/24 14:39) Medication List - Last Reconciled 05/02/24 by Shimon Oliver MD etonogestrel (Nexplanon) subdermal HPI Comments Details: Mya is here for follow up regarding atrial fibrillation. In the past, she had an episode of atrial fibrillation treated by IV diltiazem. Then converted to sinus rhythm. After that, she was on propranolol for some time but not anymore. She also had hyperthyroidism but had radioiodine treatment. Overall, she states she feels fine. No atrial fibrillation recurrences or any other issues. 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 Sexual orientation: Straight/Heterosexual Gender identity: Female Female Reproductive History Menstrual Age of Menarche: 11 Review of Systems Const Denies weakness ENT Denies dizziness Card Denies chest pain, Denies chest pain with activity, Denies syncope, Denies rapid heart rate, Denies pedal edema, Denies edema, Denies leg edema, Denies lightheadedness, Denies palpitations, Denies dyspnea, Denies dyspnea on exertion and Denies orthopnea Resp Denies cough, Denies dyspnea and Denies dyspnea on exertion GI Denies hematochezia and Denies change in stool character Musc Denies abnormal gait, Denies muscle cramps, Denies muscle weakness, Denies numbness, Denies radiating pain into limb and Denies tingling Neuro Denies abnormal gait, Denies dizziness, Denies syncope, Denies numbness, Denies tingling and Denies weakness Endo Denies palpitations Physical Exam Vital Signs: Last Vital Signs Pulse 59 05/02/24 14:56 BP 110/58 L 05/02/24 14:56 BMI result Body Mass Index 43.1 Const General: comfortable and no acute distress Orientation/consciousness: patient oriented x3 HEENT Other: Unremarkable Head: Yes normal to inspection Neck Neck: Yes normal visual inspection Chest Chest palpation & inspection: normal inspection of the chest Resp Auscultation: clear to auscultation bilaterally Cardio Palpation: normal PMI Heart sounds: S1 normal heart sound present, S2 normal heart sound present, no gallops, no murmurs and no rubs GI Palpation (GI): Soft to palpation Back/Spine/Pelvis Other: unremarkable Skin General skin exam: no rashes or lesions noted Neuro General: patient oriented x3 Extrem General: Yes normal to inspection Psych Mental Status: mental status grossly normal Office Procedures EKG Details: EKG with sinus bradycardia at 59/Min; no significant ST-T changes and otherwise unremarkable. [place]. [id number], Complete Assessment & Plan Assessment & Plan (1) PAF (paroxysmal atrial fibrillation): Code(s): I48.0 - Paroxysmal atrial fibrillation Category: Medical (2) Graves disease: Code(s): E05.00 - Thyrotoxicosis with diffuse goiter without thyrotoxic crisis or storm Category: Medical Plan: s/p Radioiodine Tx Plan Stable. With resolution of hyperthyroidism, less likely to have further episodes. Only other issue is her weight and again discussed about losing weight and address any obstructive sleep apnea through her own PCP. She understands that. She will contact us with ongoing concerns. Coding Level of Care Code Est Pt Level 3 (74613) Diagnoses PAF (paroxysmal atrial fibrillation) I48.0 Graves disease E05.00 CPT Codes EKG - CPT: 49194-[id number], Complete ([id number])
== END 2024-05-02 15:40 | disposition home or self-care (01) ==
PROVIDERS: PCP Nurse Practitioner Family; Visit Provider Internal Medicine
DX: I48.0 Paroxysmal atrial fibrillation (principal); E05.00 Thyrotoxicosis with diffuse goiter without thyrotoxic crisis or storm
CPT/HCPCS: 93010; 99213

== ENCOUNTER → 2024-05-02 14:53 | Outpatient (BNVA) | payer OTHER, SELFPAY | PROVIDERS: PCP Nurse Practitioner Family; Visit Provider Internal Medicine | DX: I48.0 Paroxysmal atrial fibrillation (principal); E05.00 Thyrotoxicosis with diffuse goiter without thyrotoxic crisis or storm | CPT/HCPCS: 93005 ==

== ENCOUNTER 2025-03-07 14:02 | Outpatient (REF) | payer OTHER, SELFPAY ==
[2025-03-08 08:12] LABS: Syphilis Screen Nonreactive (Nonreactive)
[2025-03-08 08:20] LABS: HBc Num1 0.13 S/CO (0.00-0.79); HIV Num 1 0.06 S/CO (0.00-0.99); ~HepC Num1 0.21 S/CO (0.00-0.79); ~Hepatitis C Antibody Nonreactive (Nonreactive)
== END 2025-03-07 14:03 | disposition home or self-care (01) ==
LOC: HO.LAB 14:02
PROVIDERS: PCP Nurse Practitioner Family; Visit Provider Advanced Practice Midwife
DX: Z01.419 Encounter for gynecological examination (general) (routine) without abnormal findings (principal); Z01.84 Encounter for antibody response examination; Z11.4 Encounter for screening for human immunodeficiency virus [HIV]; Z20.2 Contact with and (suspected) exposure to infections with a predominantly sexual mode of transmission
CPT/HCPCS: 36415; 86704; 86780; 86803; 87389

== ENCOUNTER 2025-03-07 14:02 | Outpatient (AMB) | payer OTHER, SELFPAY ==
[2025-03-07 14:30] VITALS: BP 104/64; BMI 43.9
--- NOTE | 2025-03-07 14:30 | A.OFFVIS_ITS ---
Vital Signs 03/07/25 14:30 Height 5 ft 4 in Weight 256 lb BMI 43.9 BP 104/64 Intake Visit Reasons: GRAB JACK MAN annual exam Compatibility Test Engineer: Compatibility Test Engineer Present (Nadia) Allergies No Known Allergies (No Known Allergies*) Allergy (Verified 03/07/25 14:32) HPI Comments Details: Patient is a premenopausal woman presenting for annual examination. Business Improvement Manager concerns: none. Nexplanon in place, 11/2023. Currently is not sexually active. She denies vaginal itching or irritation. STI screening offered; she accepts. She tries to eat healthy and stays active with exercise. Denies family history of breast, ovarian or colon cancer. Last pap smear 2020, negative. 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 [employer] Sexual orientation: Straight/Heterosexual Gender identity: Female Female Reproductive History Menstrual Age of Menarche: 11 control method: implanted (Nexplanon 12/02/23) Total pregnancies: 2 Full term: 1 Number of Living Children: 1 Ab induced: 1 Date of last pap smear: 01/03/21 (neg pap and hpv) Review of Systems Const All systems reviewed & are unremarkable except as noted in HPI and below Reports as per HPI Eyes Reports no additional complaints ENT Reports no additional complaints Card Reports no additional complaints Resp Reports no additional complaints GI Reports as per HPI and Reports no additional complaints Reports as per HPI Musc Reports no additional complaints Skin/Breast Reports as per HPI Neuro Reports no additional complaints Psych Reports no additional complaints Endo Reports no additional complaints Noman/Lymph Reports no additional complaints Aller/Immun Reports no additional complaints Physical Exam Vital Signs: Last Vital Signs BP 104/64 03/07/25 14:30 BMI result Body Mass Index 43.9 Const General: cooperative, healthy appearing, no acute distress, well developed and alert Orientation/consciousness: patient oriented x3 HEENT Head: Yes normal to inspection Eyes General: appearance normal, both eyes and all related structures Neck Neck: Yes normal visual inspection Thyroid: Thyroid normal Chest Chest palpation & inspection: normal inspection of the chest and other (no puckering, dimpling, peau de orange, retraction, discharge, masses) Breast/axilla inspection: normal inspection of the breasts Breast/axilla palpation: normal palpation of the breasts Resp Effort & Inspection: normal respiratory effort GI Inspection: Yes normal to inspection Palpation (GI): Soft to palpation Rectal Exam - Female: deferred General: Yes bladder normal to palpation External Female Exam: normal external appearance and normal appearance of the urethra Speculum Exam - Vagina: normal appearance of the vagina, normal palpation and normal vaginal discharge Speculum Exam - Cervix: normal appearance of the cervix and normal palpation Bimanual exam- vagina & uterus: normal bimanual exam, normal palpation, uterine size normal, bladder normal to palpation, normal palpation and non-tender Bimanual Exam- Adnexa, other: no masses Skin General skin exam: no rashes or lesions noted Rashes: no rashes Neuro General: patient oriented x3 Cognition (Neuro): normal cognition Extrem General: Yes normal to inspection Psych Attitude: cooperative Thought process: Normal thought process present Assessment & Plan Assessment & Plan (1) Encounter for well woman exam with routine gynecological exam: Code(s): Z01.419 - Encounter for gynecological examination (general) (routine) without abnormal findings Category: Medical Plan: Discussed: Current recommendations for pap smears per ASCCP guidelines. Breast awareness and periodic breast exams. Maintain a healthy lifestyle including a well balanced diet and routine exercise. Use condoms for STI and prevention. Patient verbalizes understanding and agrees to the plan of care. She was given opportunity to ask questions and all questions were answered to the best of my ability. RTO in one year for annual computer game tester examination. This note is constructed using voice recognition software. While every effort has been made to ensure accuracy, armature and rotor winder errors may have been included. (2) Possible exposure to STD: Code(s): Z20.2 - Contact with and (suspected) exposure to infections with a predominantly sexual mode of transmission Plan GC chlamydia and BV panel obtained labs be drawn today. Follow up pending results. The patient expressed understanding and agreement with the plan of care. All of her questions and concerns were addressed to the best of my ability. Orders: Orders Syphilis Screen Today Z20.2 - Contact with and (suspected) exposure to infections with a predominantly sexual mode of transmission HIV Ab/Ag Today Z20.2 - Contact with and (suspected) exposure to infections with a predominantly sexual mode of transmission Hepatitis C Antibody Reflex Today Z20.2 - Contact with and (suspected) exposure to infections with a predominantly sexual mode of transmission Hepatitis B Core Antibody Today Z20.2 - Contact with and (suspected) exposure to infections with a predominantly sexual mode of transmission Bacterial Vaginosis Panel Today Z20.2 - Contact with and (suspected) exposure to infections with a predominantly sexual mode of transmission CT NG by PCR Vag/Cerv Today Z20.2 - Contact with and (suspected) exposure to infections with a predominantly sexual mode of transmission Coding Level of Care Code Est Pt Prev Care [id number]) Diagnoses Encounter for well woman exam with routine gynecological exam Z01.419 Possible exposure to STD Z20.2
== END 2025-03-07 15:03 | disposition home or self-care (01) ==
LOC: HO.HWS 14:03
PROVIDERS: PCP Nurse Practitioner Family; Visit Provider Advanced Practice Midwife
DX: Z01.419 Encounter for gynecological examination (general) (routine) without abnormal findings (principal); Z20.2 Contact with and (suspected) exposure to infections with a predominantly sexual mode of transmission
CPT/HCPCS: 99395; 99459

== ENCOUNTER 2025-03-07 15:05 | Outpatient (REF) | payer OTHER, SELFPAY ==
[2025-03-07 21:23] LABS: Bacterial Vaginosis PCR NEGATIVE (Negative); Candida Group PCR NOT DETECTED (Not Detect); Candida glab krusei PCR NOT DETECTED (Not Detect); Trichomonas vaginalis PCR NOT DETECTED (Not Detect)
[2025-03-07 22:25] LABS: CT PCR NOT DETECTED (Not Detect.); NG PCR NOT DETECTED (Not Detect.)
== END 2025-03-07 15:06 | disposition home or self-care (01) ==
LOC: HO.LNP 15:05
PROVIDERS: Visit Provider Advanced Practice Midwife
DX: Z20.2 Contact with and (suspected) exposure to infections with a predominantly sexual mode of transmission (principal); Z11.3 Encounter for screening for infections with a predominantly sexual mode of transmission; Z11.8 Encounter for screening for other infectious and parasitic diseases
CPT/HCPCS: 81515; 87491; 87591